=== PATIENT | male | born 1930 | race Hispanic/Latino ===

== ENCOUNTER 2017-05-27 09:52 | Emergency (ER) | payer MEDICARE, BC ==
[2017-05-27 09:57] VITALS: BMI 26.8
[2017-05-27 10:03] VITALS: RESP 18
[2017-05-27] MEDS ORDERED: Tetracaine 0.5% Ophth 2 ML BOTTLE ONE (10:29)
--- NOTE | 2017-05-27 10:50 | ED PDOC ---
Arrival/HPI - General Chief Complaint: Eye Problem Time Seen by Provider: 05/27/17 10:34 Historian: Patient - History of Present Illness Narrative History of Present Illness (Text): 05/27/17 10:40 Fletcher Valiente is a 87 year old male, with a history of a-fib on Xarelto, CT, hypertension, glaucoma and macular degeneration, presents to the emergency department complaining of redness and bleeding from the right eye following trauma to the area yesterday afternoon. States he was in the shower when he got struck on the eye by the shower handle. Initially, patient just noted redness to the eye, but minimally began to bleed around 4pm yesterday. Patient woke up with dried blood around in the eyelid. Also complains of blurry vision. Denies any fever, chills, headache, dizziness, LOC, chest pain, shortness of breath, nausea, vomiting, diarrhea, urinary symptoms, or any other complaints at this time. Time/Duration: Other (13:00 yesterday ) Symptom Onset: Sudden Activities at Onset: Significant Context: Home Past Medical History - Provider Review Nursing Documentation Reviewed: Yes - Infectious Disease Hx of Infectious Diseases: None - Cardiac Hx Cardiac Disorders: Yes Hx Atrial Fibrillation: Yes Hx CT: Yes Hx Hypertension: Yes - Pulmonary Hx Respiratory Disorders: No - Neurological Hx Dementia: Yes - HEENT Hx Deafness: ([place]) Hx Glaucoma: Yes Hx Macular Degeneration: Yes - Renal Hx Renal Disorder: No - Endocrine/Metabolic Hx Endocrine Disorders: No - Hematological/Oncological Hx Blood Disorders: No - Integumentary Hx Dermatological Disorder: No - Musculoskeletal/Rheumatological Hx Musculoskeletal Disorders: No - Gastrointestinal Hx Gastroesophageal Reflux: Yes - Genitourinary/Gynecological Hx Prostate Cancer: Yes - Psychiatric Hx Psychophysiologic Disorder: No Hx Substance Use: No - Surgical History Hx Open Heart Surgery: Yes Other/Comment: Carotid artery sx - Anesthesia Hx Anesthesia: Yes Hx Anesthesia Reactions: No Hx Malignant Hyperthermia: No Family/Social History - Physician Review Nursing Documentation Reviewed: Yes Family/Social History: No Known Family HX Smoking Status: Never Smoked Hx Alcohol Use: No Hx Substance Use: No Allergies/Home Meds Allergies/Adverse Reactions: Allergies No Known Allergies Allergy (Verified 05/10/15 11:13) Home Medications: Home Meds Medication Instructions Recorded Confirmed Aspirin [Aspirin Chewable] 81 mg PO DAILY 05/10/16 05/27/17 Multivitamin [Multi-Vitamin Daily] 1 tab PO DAILY 05/10/16 05/27/17 Rivaroxaban [Xarelto] 20 mg PO DAILY 05/10/16 05/27/17 Ergocalciferol [Drisdol 50,000 1 cap PO Q7D 05/27/17 05/27/17 Intl Units Cap] Esomeprazole Magnesium [Nexium] 1 cap PO DAILY 05/27/17 05/27/17 Memantine HCl/Donepezil HCl 1 cap PO DAILY 05/27/17 05/27/17 [Namzaric 28 mg-10 mg Capsule] Pravastatin Sodium [Pravachol] 1 tab PO HS 05/27/17 05/27/17 Vit B12/Levomefolate/Vit B6/B2 1 cap PO DAILY 05/27/17 05/27/17 [Cerefolin Caplet] Vit C/Vit E AC/Lut/Copper/Zinc 1 cap PO DAILY 05/27/17 05/27/17 [Preservision Lutein Softgel] Review of Systems - Review of Systems Constitutional: Normal. absent: Fatigue, Fevers Eyes: Vision Changes (blurred vision right eye ), Other (redness and bleeding noted from right eye ) Respiratory: Normal. absent: SOB, Cough Cardiovascular: Normal. absent: Chest Pain, Palpitations Gastrointestinal: Normal. absent: Abdominal Pain, Constipation, Diarrhea, Nausea, Vomiting Genitourinary Male: Normal Musculoskeletal: Normal Skin: Normal Neurological: Normal. absent: Headache, Dizziness, Focal Weakness Psychiatric: Normal Physical Exam - Physical Exam Narrative Physical Exam (Text): Constitutional: No acute distress. Head: Normocephalic. Atraumatic. Eyes: PERRL. No teardrop shaped pupil. + subconjunctival hemorrhage, superficial appearing lateral defect in sclera, dried blood in eyelid, no visible laceration. ENT: Moist mucous membranes. Neck: Supple. Cardiovascular: Regular rate. Chest: No tenderness. Respiratory: Clear to auscultation bilaterally. GI: Soft. Nontender. Nondistended. Back: No CVA tenderness. Musculoskeletal: No tenderness or swelling of extremities. Skin: No rash. Neurologic: Alert, no focal deficit.] Vital Signs Reviewed: Yes Vital Signs Temp Pulse Resp BP Pulse Ox 05/27/17 12:12 98.0 F 62 18 174/86 H 97 05/27/17 10:02 97.8 F 68 18 169/68 H 98 Temperature: Afebrile Blood Pressure: Hypertensive Pulse: Regular Respiratory Rate: Normal Appearance: Positive for: Well-Appearing, Non-Toxic, Comfortable Pain Distress: None Mental Status: Positive for: Alert and Oriented X 3 Medical Decision Making ED Course and Treatment: 05/27/17 10:53 Impression: A 87 year old male who presents to the emergency department complaining of redness and bleeding from the right eye following trauma to the are. Plan: -- Erythromycin -- Reassess and disposition -- Fluorescein stain filled aforementioned defect of eye without any visible dripping of acqueous humor. No evidence of globe rupture. Discussed case with Dr. Leonard who recommends erythromycin ointment, pressure dressing, and f/u in his office at 10am. Progress Notes: 05/27/17 12:06 On reevaluation the patient is in no acute distress. I have discussed the results and plan with the patient, who expresses understanding. Patient given the opportunity to ask question, all questions were answered and there is agreement with the plan to discharge the patient home. Patient is stable for discharge. Patient was instructed to follow up with physician/clinic in 1-2 days or return if symptoms persist/worsen or new concerning symptoms arise. - Medication Orders Current Medication Orders: Discontinued Medications Erythromycin (Erythromycin) 1 applic OD ONCE ONE Stop: 05/27/17 11:20 Last Admin: 05/27/17 12:15 Dose: 1 appl Tetracaine HCl (Tetracaine 0.5% Ophth Soln) Confirm Administered Dose 2 drop .ROUTE .STK-MED ONE Stop: 05/27/17 10:30 Last Admin: 05/27/17 10:40 Dose: 2 drop Comments: Administered by Dr. Mariee / R eye - Scribe Statement The provider has reviewed the documentation as recorded by the Sylvester Klein Provider Scribe Attestation: All medical record entries made by the Scribe were at my direction and personally dictated by me. I have reviewed the chart and agree that the record accurately reflects my personal performance of the history, physical exam, medical decision making, and the department course for this patient. I have also personally directed, reviewed, and agree with the discharge instructions and disposition. Disposition/Present on Arrival - Present on Arrival Any Indicators Present on Arrival: No History of DVT/PE: No History of Uncontrolled Diabetes: No Urinary Catheter: No History of Decub. Ulcer: No History Surgical Site Infection Following: None - Disposition Have Diagnosis and Disposition been Completed?: Yes Diagnosis: Conjunctival laceration Disposition: HOME/ ROUTINE Disposition Time: 12:45 Patient Plan: Discharge Condition: STABLE Discharge Instructions (ExitCare): Subconjunctival Hemorrhage (ED) Additional Instructions: Dr. Leonard is expecting you at 10am. Referrals: Lee Leonard MD [Staff Provider] - Follow up with primary
[2017-05-27] MEDS ORDERED: Erythromycin 0.5% Ophth Oint 1 APPLIC/3.5 G OD ONE (11:19)
[2017-05-27 12:13] VITALS: BP 174/86; PULSE 62; TEMP 98; O2SAT 97
== END 2017-05-27 12:30 | disposition home or self-care (01) ==
LOC: ED 09:52
DX: S05.31XA Ocular laceration without prolapse or loss of intraocular tissue, right eye, initial encounter (principal); W22.8XXA Striking against or struck by other objects, initial encounter; Y93.E1 Activity, personal bathing and showering; Y92.002 Bathroom of unspecified non-institutional (private) residence as the place of occurrence of the external cause; I10 Essential (primary) hypertension; I48.91 Unspecified atrial fibrillation; Z79.01 Long term (current) use of anticoagulants

== ENCOUNTER 2018-06-29 08:25 | Emergency (ER) | payer MEDICARE, BC ==
[2018-06-29 08:26] VITALS: BMI 26.8
[2018-06-29 08:41] VITALS: O2SAT 98
--- NOTE | 2018-06-29 09:28 | ED PDOC ---
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 His did not witness the fall until he called her afterwards. She believes he fell while trying to get dressed. She does not think he hit his head. He fell on carpet in his bedroom near the dresser. Currently, he endorses a mild headache and back pain. Otherwise, he denies vision changes, chest pain, SOB, cough, nausea/vomiting/diarrhea, changes in sensation, weakness, or any other symptoms. (Toney Monte) Past Medical History - Provider Review Nursing Documentation Reviewed: Yes - Infectious Disease Hx of Infectious Diseases: None - Cardiac Hx Cardiac Disorders: Yes Hx Atrial Fibrillation: Yes Hx MA: Yes Hx Hypertension: Yes - Pulmonary Hx Respiratory Disorders: No - Neurological Hx Alzheimer's Disease: Yes Hx Dementia: Yes - HEENT Hx Deafness: ([place]) Hx Glaucoma: Yes Hx Macular Degeneration: Yes - Renal Hx Renal Disorder: No - Endocrine/Metabolic Hx Endocrine Disorders: No - Hematological/Oncological Hx Blood Disorders: No - Integumentary Hx Dermatological Disorder: No - Musculoskeletal/Rheumatological Hx Musculoskeletal Disorders: No - Gastrointestinal Hx Gastroesophageal Reflux: Yes - Genitourinary/Gynecological Hx Prostate Cancer: Yes - Psychiatric Hx Psychophysiologic Disorder: No Hx Substance Use: No - Surgical History Hx Open Heart Surgery: Yes Other/Comment: Carotid artery sx - Anesthesia Hx Anesthesia: Yes Hx Anesthesia Reactions: No Hx Malignant Hyperthermia: No <Toney Monte - Last Filed: 06/29/18 11:48> Family/Social History - Physician Review Nursing Documentation Reviewed: Yes Family/Social History: No Known Family HX Smoking Status: Never Smoked Hx Alcohol Use: No Hx Substance Use: No <Toney Monte - Last Filed: 06/29/18 11:48> Allergies/Home Meds <Toney Monte - Last Filed: 06/29/18 11:48> <Andrei Reese - Last Filed: 06/29/18 12:38> Allergies/Adverse Reactions: Allergies No Known Allergies Allergy (Verified 06/29/18 08:43) Home Medications: Home Meds Medication Instructions Recorded Confirmed Aspirin [Aspirin Chewable] 81 mg PO DAILY 05/10/16 06/29/18 Multivitamin [Multi-Vitamin Daily] 1 tab PO DAILY 05/10/16 06/29/18 Rivaroxaban [Xarelto] 20 mg PO DAILY 05/10/16 06/29/18 Memantine HCl/Donepezil HCl 1 cap PO DAILY 05/27/17 06/29/18 [Namzaric 28 mg-10 mg Capsule] Pravastatin Sodium [Pravachol] 40 tab PO HS 05/27/17 06/29/18 Esomeprazole Magnesium [Nexium 1 tab PO DAILY 06/29/18 06/29/18 24Hr] Vit B12/Levomefolate/Vit B6/B2 1 tab PO DAILY 06/29/18 06/29/18 [Cerefolin Caplet] Review of Systems - Review of Systems Constitutional: absent: Fevers, Night Sweats Eyes: absent: Vision Changes ENT: absent: Hearing Changes, Sore Throat Respiratory: absent: SOB, Cough Cardiovascular: absent: Chest Pain, Syncope Gastrointestinal: absent: Abdominal Pain, Diarrhea, Nausea, Vomiting Genitourinary Male: absent: Dysuria, Frequency, Urinary Output Changes Musculoskeletal: Back Pain Skin: absent: Rash, Pruritis, Skin Lesions Neurological: Headache. absent: Dizziness, Speech Changes, Facial Droop Endocrine: absent: Diaphoresis <MonteToney wade - Last Filed: 06/29/18 11:48> Physical Exam Vital Signs Reviewed: Yes Temperature: Afebrile Mental Status: Positive for: Confused - Systems Exam Head: Present: Atraumatic, Normocephalic. No: Contusion, Ecchymosis, Abrasion, Laceration Pupils: Present: PERRL Extroacular Muscles: Present: EOMI Mouth: Present: Moist Mucous Membranes Pharnyx: Present: Normal. No: ERYTHEMA, EXUDATE, TONSILS ENLARGED Nose (External): Present: Atraumatic Neck: Present: Normal Range of Motion Respiratory/Chest: Present: Clear to Auscultation. No: Respiratory Distress, Accessory Muscle Use, Rales, Rhonchi Cardiovascular: Present: Regular Rate and Rhythm, Normal S1, S2. No: Murmurs, Rub, Gallop Abdomen: Present: Normal Bowel Sounds. No: Tenderness, Distention, Rebound, Guarding Back: Present: Normal Inspection Upper Extremity: Present: Normal Inspection. No: Cyanosis, Edema Lower Extremity: Present: Normal Inspection. No: Edema, Cyanosis Neurological: Present: CN II-XII Intact, Speech Normal, Motor Func Grossly Intact Skin: Present: Warm, Dry, Normal Color Psychiatric: Present: Alert <Toney Monte - Last Filed: 06/29/18 11:48> Temperature: Afebrile Blood Pressure: Hypertensive Pulse: Regular Respiratory Rate: Normal Appearance: Positive for: Well-Appearing, Non-Toxic, Comfortable Pain Distress: None Mental Status: Positive for: Alert and Oriented X 3 <Andrei Reese - Last Filed: 06/29/18 12:38> Vital Signs Temp Pulse Resp BP Pulse Ox 06/29/18 11:37 98.2 F 65 18 166/100 H 98 06/29/18 08:35 98.2 F 70 16 185/78 H 98 06/29/18 08:26 98.2 F 70 16 185/78 H 98 Medical Decision Making - Lab Interpretations I have reviewed the lab results: Yes Interpretation: All labs normal - RAD Interpretation Visitor Services Coordinator: Radiologist <Toney Monte - Last Filed: 06/29/18 11:48> <Andrei Reese - Last Filed: 06/29/18 12:38> ED Course and Treatment: 06/29/18 11:23 Patient was seen and examined again. Results of imaging were discussed with his , who is also his primary caregiver. Her main concern is that she has not been getting enough rest and she is unsure whether she will be able to continue to care for him at home. We explained that, given negative imaging findings, we cannot keep him at the hospital. We spoke to his PMD Dr. Garzon who states that she will be speaking with [facility] intermodal dispatcher care today to see if he will be able to get a bed. We encouraged his to follow up with her and to return to ED if his condition worsens. (Toney Monte) 06/29/18 In agreement with resident note, which includes further HPI details. Patient was seen and evaluated with resident, came up with plan and treatment together. (Andrei Reese) - Lab Interpretations Lab Results: 06/29/18 09:30 06/29/18 09:30 Lab Results 06/29/18 09:30: Urine Color Yellow, Urine Appearance Clear, Urine pH 7.5, Ur Specific [place] 1.015, Urine Protein Negative, Urine Glucose (UA) Negative, Urine Ketones Trace H, Urine Blood Trace-intact H, Urine Nitrate Negative, Urine Bilirubin Negative, Urine Urobilinogen 0.2, Ur Leukocyte Esterase Negative , Urine RBC 0 - 2, Urine WBC 1 - 3, Ur Epithelial Cells 1 - 3, Urine Bacteria Few 06/29/18 09:30: Sodium 140, Potassium 4.1, Chloride 101, Carbon Dioxide 28, Anion Gap 16, BUN 11, Creatinine 0.8, Est GFR ( Amer) > 60, Est GFR (Non- Af Amer) > 60, Random Glucose 114 H, Calcium 9.2, Phosphorus 2.5, Magnesium 2.0 , Total Bilirubin 1.8 H, AST 42, ALT 17, Alkaline Phosphatase 79, Total Protein 7.8, Albumin 4.4, Globulin 3.4, Albumin/Globulin Ratio 1.3 06/29/18 09:30: WBC 8.3, RBC 4.23, Hgb 13.6 L, Hct 40.0 L, MCV 94.6, MCH 32.2, MCHC 34.0, RDW 13.5, Plt Count 141, MPV 10.4, Gran % 79.1 H, Lymph % (Auto) 13.1 L, [place] % (Auto) 7.1 H, Eos % (Auto) 0.5 L, Baso % (Auto) 0.2, Gran # 6.56 H, Lymph # (Auto) 1.1 L, [place] # (Auto) 0.6, Eos # (Auto) 0.0, Baso # (Auto) 0.02 - RAD Interpretation Radiology Orders: 06/29/18 09:04 HEAD W/O CONTRAST [CT] Stat CHEST PORTABLE [RAD] Stat 06/29/18 09:18 THORACIC SPINE [DORSAL (THORACIC) SPINE] [RAD] Routine <Toney Monte - Last Filed: 06/29/18 11:48> - PA / CERTIFIED FORKLIFT OPERATOR / Resident Statement MD/DO has reviewed & agrees with the documentation as recorded. MD/DO has examined the patient and agrees with the treatment plan. - Scribe Statement The provider has reviewed the documentation as recorded by the Scribe <Andrei Reese - Last Filed: 06/29/18 12:38> - Scribe Statement Vandana Don Provider Scribe Attestation: All medical record entries made by the Scribe were at my direction and personally dictated by me. I have reviewed the chart and agree that the record accurately reflects my personal performance of the history, physical exam, medical decision making, and the department course for this patient. I have also personally directed, reviewed, and agree with the discharge instructions and disposition. (Andrei Reese) Disposition/Present on Arrival - Present on Arrival Any Indicators Present on Arrival: No History of DVT/PE: No History of Uncontrolled Diabetes: No Urinary Catheter: No History of Decub. Ulcer: No History Surgical Site Infection Following: None - Disposition Have Diagnosis and Disposition been Completed?: Yes Disposition Time: 11:32 Patient Plan: Discharge <Toney Monte - Last Filed: 06/29/18 11:48> <Andrei Reese - Last Filed: 06/29/18 12:38> - Disposition Diagnosis: Fall Disposition: HOME/ ROUTINE Patient Problems: Current Active Problems Problem Status Onset Fall Acute Condition: FAIR Discharge Instructions (ExitCare): Preventing Falls in the Older Adult Additional Instructions: Please follow up with Dr. Garzon about getting Mr. Valiente placed at [facility]. His is his primary caregiver and she is struggling to continue to take care of him. Forms: [employer] ([place])
[2018-06-29 09:47] LABS: BASO # 0.02 K/mm3 (0.0-2.0); BASO % 0.2 % (0.0-3.0); EOS % 0.5 % (1.5-5.0); GRAN # 6.56 (1.4-6.5); GRAN % 79.1 % (50.0-68.0); HEMOGLOBIN 13.6 g/dL (14.0-18.0); LYMPH # 1.1 (1.2-3.4); LYMPH % 13.1 % (22.0-35.0); MEAN CELL VOLUME 94.6 fl (80.0-105.0); MEAN CORPUSCULAR HEMOGLOBIN 32.2 pg (25.0-35.0); MEAN PLATELET VOLUME 10.4 fl (7.0-11.0); MONO # 0.6 (0.1-0.6); MONO % 7.1 % (1.0-6.0); RBC 4.23 10^6/uL (3.5-6.1); RED CELL DISTRIBUTION WIDTH 13.5 % (11.5-14.5); WHITE BLOOD COUNT 8.3 10^3/ul (4.5-11.0)
[2018-06-29 09:50] LABS: PH,URINE 7.5 (4.7-8.0); URINE APPEARANCE CLEAR (CLEAR); URINE BILIRUBIN NEGATIVE (NEGATIVE); URINE BLOOD TRACE-INTACT (NEGATIVE); URINE COLOR YELLOW (YELLOW); URINE GLUCOSE (UA) NEGATIVE (NEGATIVE); URINE LEUKOCYTE ESTERASE NEGATIVE Leu/uL (NEGATIVE); URINE PROTEIN NEGATIVE mg/dL (<30 mg/dL); URINE UROBILINOGEN 0.2 E.U./dL (<1 E.U./dL)
[2018-06-29 09:56] LABS: ALB/GLOB RATIO 1.3 (1.1-1.8); ALBUMIN 4.4 g/dL (3.0-4.8); ALT/SGPT 17 U/L (7-56); AST/SGOT 42 U/L (17-59); BLOOD UREA NITROGEN 11 mg/dL (7-21); CALCIUM 9.2 mg/dL (8.4-10.5); GFR AFRICAN-AMERICAN > 60; GFR NON-AFRICAN AMERICAN > 60
--- NOTE | 2018-06-29 10:07 | CT ---
Date of service: 06/29/2018 PROCEDURE: CT HEAD WITHOUT CONTRAST. HISTORY: fall COMPARISON: 05/10/2016 TECHNIQUE: Axial computed tomography images were obtained through the head/brain without intravenous contrast. Radiation dose: Total exam DLP = 937 mGy-cm. This CT exam was performed using one or more of the following dose reduction techniques: Automated exposure control, adjustment of the mA and/or kV according to patient size, and/or use of iterative reconstruction technique. FINDINGS: HEMORRHAGE: No intracranial hemorrhage. BRAIN: No mass effect or edema. There is moderate atrophy and chronic microvascular changes in the periventricular white matter and basal ganglia. VENTRICLES: Unremarkable. No hydrocephalus. CALVARIUM: Unremarkable. PARANASAL SINUSES: Unremarkable as visualized. No significant inflammatory changes. MASTOID AIR CELLS: Unremarkable as visualized. No inflammatory changes. OTHER FINDINGS: None. IMPRESSION: No acute findings
[2018-06-29 10:14] LABS: URINE RBC 0 - 2 /hpf (0-2)
[2018-06-29 10:15] LABS: URINE BACTERIA FEW (NEG)
--- NOTE | 2018-06-29 10:41 | RAD ---
Date of service: 06/29/2018 HISTORY: fall, r/o fx COMPARISON: No prior. FINDINGS: LUNGS: No active pulmonary disease. PLEURA: No significant pleural effusion identified, no pneumothorax apparent. CARDIOVASCULAR: Mild cardiomegaly. Midline sternotomy. Coronary artery bypass clips. OSSEOUS STRUCTURES: No gross fracture appreciated. Thoracic spondylosis. 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 Probable right coaster vertebral osseous hypertrophic changes at the right hilar level. Bilateral shoulder arthrosis. Cervical spondylosis. VISUALIZED UPPER ABDOMEN: Normal. OTHER FINDINGS: None. IMPRESSION: No acute pulmonary pathology appreciated. Cardiomegaly and midline sternotomy- status post CABG. No gross fracture appreciated. Please note the same-day thoracic spine study.
--- NOTE | 2018-06-29 10:48 | RAD ---
Date of service: 06/29/2018 HISTORY: s/p fall, r/o compression fx COMPARISON: No prior. FINDINGS: BONES: Alignment maintained. No gross fracture. . Spondylosis present. Calcification ossification of the anterior longitudinal ligament compatible with DISH DISC SPACES: Minimal diffuse disc space narrowing SOFT TISSUES: Normal. OTHER FINDINGS: Atherosclerotic vascular calcifications present. . IMPRESSION: No gross fracture appreciated. Thoracic spondylosis and DISH
[2018-06-29 11:38] VITALS: RESP 18
[2018-06-29 13:12] VITALS: BP 158/86; PULSE 61; TEMP 98
--- NOTE | 2018-06-29 14:16 | CARD ---
APPROVED REPORT Date of service: 06/29/2018 EKG Measurement Heart [id number] <Conclusion> Atrial fibrillation Left axis deviation Left bundle branch block Abnormal ECG
== END 2018-06-29 12:50 | disposition home or self-care (01) ==
LOC: ED 08:25
DX: Z04.3 Encounter for examination and observation following other accident (principal); W18.30XA Fall on same level, unspecified, initial encounter; Y92.003 Bedroom of unspecified non-institutional (private) residence as the place of occurrence of the external cause; I10 Essential (primary) hypertension; I25.2 Old myocardial infarction; I48.91 Unspecified atrial fibrillation; G30.9 Alzheimer's disease, unspecified; F02.80 Dementia in other diseases classified elsewhere, unspecified severity, without behavioral disturbance, psychotic disturbance, mood disturbance, and anxiety; Z85.46 Personal history of malignant neoplasm of prostate; Z79.01 Long term (current) use of anticoagulants

== ENCOUNTER 2018-07-07 11:30 | Inpatient (IN) | payer MEDICARE, BC ==
[2018-07-07 11:34] VITALS: BMI 25.8
[2018-07-07] MEDS ORDERED: Sodium Chloride 0.9% 500 ML IV STA (11:38)
--- NOTE | 2018-07-07 11:46 | ED PDOC ---
Arrival/HPI - General Time Seen by Provider: 07/07/18 11:37 Historian: Patient, Spouse EM Caveat: Dementia - History of Present Illness Narrative History of Present Illness (Text): 07/07/18 11:39 Patient is a 88 year old male whose past medical history includes prostate cancer(2009), Coronary Artery Disease, s/p CABG, and afib, who presents to the Emergency department complaining of LLQ abdominal pain. Patient is present with his who states that his abdominal pain started 2 days ago and worsened yesterday. He describes the pain as sharp, and reports that he started experiencing back pain today. He tried Tylenol for his abdominal pain with no alleviation. Patient also notes having diarrhea with 10 bowel movements yesterday, and has increased urination frequency. Patient is on Xarelto for his afib. According to his patient's last colonoscopy 5-6 year ago and was normal. also notes that patient has Alzheimer's disease. Patient denies any fever, sore throat, cough, shortness of breath, chest pain, nausea, vomiting, new rashes, headache, depression, or any other associated symptoms. ROS limited due to patient's dementia. PMD: Time/Duration: < week Symptom Onset: Gradual Symptom Course: Worsening Quality: Stabbing Context: Home Past Medical History - Provider Review Nursing Documentation Reviewed: Yes - Infectious Disease Hx of Infectious Diseases: None - Cardiac Hx Cardiac Disorders: Yes Hx Atrial Fibrillation: Yes Hx AK: Yes Hx Hypertension: Yes - Pulmonary Hx Respiratory Disorders: No - Neurological Hx Alzheimer's Disease: Yes Hx Dementia: Yes - HEENT Hx Deafness: (NENANA) Hx Glaucoma: Yes Hx Macular Degeneration: Yes - Renal Hx Renal Disorder: No - Endocrine/Metabolic Hx Endocrine Disorders: No - Hematological/Oncological Hx Blood Disorders: No - Integumentary Hx Dermatological Disorder: No - Musculoskeletal/Rheumatological Hx Musculoskeletal Disorders: No - Gastrointestinal Hx Gastroesophageal Reflux: Yes - Genitourinary/Gynecological Hx Prostate Cancer: Yes - Psychiatric Hx Psychophysiologic Disorder: No Hx Substance Use: No - Surgical History Hx Open Heart Surgery: Yes Other/Comment: Carotid artery sx - Anesthesia Hx Anesthesia: Yes Hx Anesthesia Reactions: No Hx Malignant Hyperthermia: No Family/Social History - Physician Review Nursing Documentation Reviewed: Yes Family/Social History: No Known Family HX Smoking Status: Never Smoked Hx Alcohol Use: No Hx Substance Use: No Allergies/Home Meds Allergies/Adverse Reactions: Allergies No Known Allergies Allergy (Verified 07/07/18 11:34) Home Medications: Home Meds Medication Instructions Recorded Confirmed Aspirin [Aspirin Chewable] 81 mg PO DAILY 05/10/16 07/07/18 Multivitamin [Multi-Vitamin Daily] 1 tab PO DAILY 05/10/16 07/07/18 Rivaroxaban [Xarelto] 20 mg PO DAILY 05/10/16 07/07/18 Memantine HCl/Donepezil HCl 1 cap PO DAILY 05/27/17 07/07/18 [Namzaric 28 mg-10 mg Capsule] Pravastatin Sodium [Pravachol] 40 tab PO HS 05/27/17 07/07/18 Esomeprazole Magnesium [Nexium 1 tab PO DAILY 06/29/18 07/07/18 24Hr] Vit B12/Levomefolate/Vit B6/B2 1 tab PO DAILY 06/29/18 07/07/18 [Cerefolin Cap[place]] Review of Systems - Review of Systems Constitutional: absent: Fevers ENT: absent: Sore Throat Respiratory: absent: SOB, Cough Cardiovascular: absent: Chest Pain Gastrointestinal: Abdominal Pain, Diarrhea. absent: Nausea Genitourinary Male: Frequency (increased) Musculoskeletal: Back Pain Skin: absent: Rash Neurological: absent: Headache Psychiatric: absent: Depression Physical Exam Vital Signs Temp Pulse Resp BP Pulse Ox 07/07/18 11:34 98.7 F 67 18 149/69 98 Temperature: Afebrile Blood Pressure: Normal Pulse: Regular Respiratory Rate: Normal Appearance: Positive for: Well-Appearing Mental Status: Positive for: Alert and Oriented X 3 - Systems Exam Head: Present: Atraumatic, Normocephalic Pupils: Present: PERRL Extroacular Muscles: Present: EOMI Conjunctiva: Present: Normal Mouth: Present: Moist Mucous Membranes Neck: Present: Normal Range of Motion Respiratory/Chest: Present: Clear to Auscultation, Good Air Exchange. No: Respiratory Distress, Accessory Muscle Use Cardiovascular: Present: Normal S1, S2, Other (irregularly irregular). No: Murmurs Abdomen: Present: Tenderness (LLQ tenderness). No: Distention, Peritoneal Signs Genitourinary Male: No: Testicle Tenderness Back: Present: Paraspinal Tenderness (Left lower back). No: Midline Tenderness Upper Extremity: Present: Normal Inspection. No: Cyanosis, Edema Lower Extremity: Present: Normal Inspection. No: Edema Neurological: Present: GCS=15, CN II-XII Intact, Speech Normal Skin: Present: Warm, Dry, Normal Color. No: Rashes Psychiatric: Present: Alert, Oriented x 3, Normal Insight, Normal Concentration Medical Decision Making ED Course and Treatment: 07/07/18 11:51 Impression: Patient is a 88 year old male who presents to the Emergency department complaining of abdominal pain, which started 2 days ago and worsened yesterday. Differential Diagnosis included but are not limited to: Diverticulitis vs. UTI vs. Small bowel obstruction Plan: --abdominal and pelvic CT with IV contrast --Labs --Blood work --Urinalysis --Toradol -- Zofran -- IV fluids -- Reassess and disposition Prior Visits: Notes and results from previous visits were reviewed. Progress Notes: 07/07/18 12:22 evaluated patient at bedside. 07/07/18 13:51 CT Abd/pelvis findings: LOWER THORAX: Unremarkable. LIVER: Unremarkable. No gross lesion or ductal dilatation. GALLBLADDER AND BILE DUCTS: Several gallstones PANCREAS: Unremarkable. No gross lesion or ductal dilatation. SPLEEN: Unremarkable. ADRENALS: Unremarkable. No mass. KIDNEYS AND URETERS: Unremarkable. No hydronephrosis. No solid mass. 8 cm simple cyst arising from lower pole of the right kidney VASCULATURE:Unremarkable. No aortic aneurysm. BOWEL: Unremarkable. No obstruction. No gross mural thickening. APPENDIX: Normal appendix. PERITONEUM: There is severe edema and swelling of the left iliacus muscle consistent with a muscular strain or partial tear. There is some minimal edema in the adjacent mesenteric fat planes. The swelling extends into the iliopsoas muscle and tendon to the level of the insertion on the hip. This is most likely due to a hip flexor type injury. There is no associated fracture. LYMPH NODES: Unremarkable. No enlarged lymph nodes. BLADDER: Unremarkable. REPRODUCTIVE: Unremarkable. BONES: No acute fracture. OTHER FINDINGS: None. IMPRESSION: Severe edema and swelling of the left iliacus muscle consistent with a muscular tear or strain. 07/07/18 14:05 Patient walks at baseline with a walker. Above CT findings may account for patient's abdominal pain. PT evaluation placed. UA shows moderate bacteria but only 2-5wbc and negative nitrates and leukocytes. Ucx sent. Discussed case with , who accepts the patient to her service for observation for PT evaluation and ?ortho evaluation due to muscle tear/strain. - Lab Interpretations Lab Results: 07/07/18 12:00 07/07/18 12:00 Lab Results 07/07/18 12:00: Sodium 138, Potassium 4.1, Chloride 101, Carbon Dioxide 28, Anion Gap 13, BUN 14, Creatinine 0.7 L, Est GFR ( Amer) > 60, Est GFR ( Non-Af Amer) > 60, Random Glucose 109, Calcium 8.9, Phosphorus 2.5, Magnesium 1.9, Total Bilirubin 2.0 H, AST 28, ALT 16, Alkaline Phosphatase 70, Total Protein 7.1, Albumin 3.9, Globulin 3.2, Albumin/Globulin Ratio 1.2, Lipase 34 07/07/18 12:00: Urine Color Yellow, Urine Appearance Clear, Urine pH 6.0, Ur Specific [place] 1.025, Urine Protein Trace H, Urine Glucose (UA) Negative, Urine Ketones Trace H, Urine Blood Negative, Urine Nitrate Negative, Urine Bilirubin Negative, Urine Urobilinogen 1.0 H, Ur Leukocyte Esterase Negative, Urine RBC 1 - 3, Urine WBC 2 - 5, Ur Epithelial Cells 0 - 2, Amorphous Sediment Few, Urine Bacteria Mod 07/07/18 12:00: PT 21.0 H, INR 1.80, APTT 34.1 07/07/18 12:00: WBC 8.9, RBC 3.66, Hgb 11.9 L, Hct 34.4 L, MCV 94.0, MCH 32.5, MCHC 34.6, RDW 13.8, Plt Count 143, MPV 9.8, Gran % 69.5 H, Lymph % (Auto) 15.8 L, [place] % (Auto) 13.1 H, Eos % (Auto) 1.3 L, Baso % (Auto) 0.3, Gran # 6.21, Lymph # (Auto) 1.4, [place] # (Auto) 1.2 H, Eos # (Auto) 0.1, Baso # (Auto) 0.03 I have reviewed the lab results: Yes - RAD Interpretation Radiology Orders: 07/07/18 11:39 ABD & PELVIS IV CONTRAST ONLY [CT] Stat Athletic Trainer: Radiologist - Medication Orders Current Medication Orders: Discontinued Medications Sodium Chloride (Sodium Chloride 0.9%) 500 mls @ 999 mls/hr IV .Q31M STA Stop: 07/07/18 12:08 Last Admin: 07/07/18 11:57 Dose: 999 mls/hr eMAR Start Stop Document 07/07/18 11:57 ELMER (Rec: 07/07/18 11:58 [email or web address] [id number]) Intravenous Solution Start Date 07/07/18 Start Time 11:58 End Date 07/07/18 End time 12:28 Total Infusion Time 30 Ketorolac Tromethamine (Toradol) 30 mg IVP STAT STA Stop: 07/07/18 11:39 Last Admin: 07/07/18 11:57 Dose: 30 mg MAR Pain Assessment Document 07/07/18 11:57 ELMER (Rec: 07/07/18 11:57 ELMER [id number]) Pain Reassessment Is this a pain reassessment? No Sleep Is patient sleeping during reassessment? No Presence of Pain Presence of Pain Yes IVP Administration Document 07/07/18 11:57 ELMER (Rec: 07/07/18 11:57 ELMER [id number]) Charges for Administration # of IVP Administrations 1 Ondansetron HCl (Zofran Inj) 4 mg IVP STAT STA Stop: 07/07/18 11:39 Last Admin: 07/07/18 11:57 Dose: 4 mg IVP Administration Document 07/07/18 11:57 ELMER (Rec: 07/07/18 11:57 DAYA [id number]) Charges for Administration # of IVP Administrations 1 - Scribe Statement The provider has reviewed the documentation as recorded by the Scribe Anton Preston Provider Scribe Attestation: All medical record entries made by the Scribe were at my direction and personally dictated by me. I have reviewed the chart and agree that the record accurately reflects my personal performance of the history, physical exam, medical decision making, and the department course for this patient. I have also personally directed, reviewed, and agree with the discharge instructions and disposition. Disposition/Present on Arrival - Present on Arrival Any Indicators Present on Arrival: No History of DVT/PE: No History of Uncontrolled Diabetes: No Urinary Catheter: No History Surgical Site Infection Following: None - Disposition Have Diagnosis and Disposition been Completed?: Yes Diagnosis: Anemia, Muscle tear Disposition: HOSPITALIZED Disposition Time: 13:53 Patient Plan: Observation Patient Problems: Current Active Problems Problem Status Onset Anemia Acute Muscle tear Acute Condition: FAIR
[2018-07-07 12:11] LABS: BASO # 0.03 K/mm3 (0.0-2.0); BASO % 0.3 % (0.0-3.0); EOS # 0.1 (0.0-0.7); EOS % 1.3 % (1.5-5.0); GRAN # 6.21 (1.4-6.5); GRAN % 69.5 % (50.0-68.0); HEMOGLOBIN 11.9 g/dL (14.0-18.0); LYMPH # 1.4 (1.2-3.4); LYMPH % 15.8 % (22.0-35.0); MEAN CORPUSCULAR HEMOGLOBIN 32.5 pg (25.0-35.0); MEAN CORPUSCULAR HGB CONC 34.6 g/dl (31.0-37.0); MEAN PLATELET VOLUME 9.8 fl (7.0-11.0); MONO # 1.2 (0.1-0.6); MONO % 13.1 % (1.0-6.0); RBC 3.66 10^6/uL (3.5-6.1); RED CELL DISTRIBUTION WIDTH 13.8 % (11.5-14.5); URINE BILIRUBIN NEGATIVE (NEGATIVE); URINE BLOOD NEGATIVE (NEGATIVE); URINE GLUCOSE (UA) NEGATIVE (NEGATIVE); URINE LEUKOCYTE ESTERASE NEGATIVE Leu/uL (NEGATIVE); URINE PROTEIN TRACE mg/dL (<30 mg/dL); WHITE BLOOD COUNT 8.9 10^3/ul (4.5-11.0)
[2018-07-07 12:13] LABS: URINE APPEARANCE CLEAR (CLEAR); URINE COLOR YELLOW (YELLOW)
[2018-07-07 12:15] LABS: INR 1.8
[2018-07-07 12:18] LABS: PARTIAL THROMBOPLASTIN TIME 34.1 Seconds (25.1-36.5)
[2018-07-07 12:30] LABS: ALB/GLOB RATIO 1.2 (1.1-1.8); ALBUMIN 3.9 g/dL (3.0-4.8); ALT/SGPT 16 U/L (7-56); AST/SGOT 28 U/L (17-59); BLOOD UREA NITROGEN 14 mg/dL (7-21); CALCIUM 8.9 mg/dL (8.4-10.5); GFR AFRICAN-AMERICAN > 60; GFR NON-AFRICAN AMERICAN > 60; LIPASE 34 U/L (23-300)
[2018-07-07] MEDS ORDERED: Iohexol 350 MG/100 ML VIAL ONE (12:37)
[2018-07-07 12:56] LABS: URINE EPITHELIAL CELLS 0 - 2 /hpf (0-5)
[2018-07-07 12:57] LABS: URINE AMORPHOUS SEDIMENT FEW; URINE BACTERIA MOD (NEG)
--- NOTE | 2018-07-07 13:51 | CT ---
Date of service: 07/07/2018 PROCEDURE: CT Abdomen and Pelvis with contrast HISTORY: LLQ pain COMPARISON: None. TECHNIQUE: Contrast dose: 100 cc of Omni 350 Radiation dose: Total exam DLP = 684 mGy-cm. This CT exam was performed using one or more of the following dose reduction techniques: Automated exposure control, adjustment of the mA and/or kV according to patient size, and/or use of iterative reconstruction technique. FINDINGS: LOWER THORAX: Unremarkable. LIVER: Unremarkable. No gross lesion or ductal dilatation. GALLBLADDER AND BILE DUCTS: Several gallstones PANCREAS: Unremarkable. No gross lesion or ductal dilatation. SPLEEN: Unremarkable. ADRENALS: Unremarkable. No mass. KIDNEYS AND URETERS: Unremarkable. No hydronephrosis. No solid mass. 8 cm simple cyst arising from lower pole of the right kidney VASCULATURE: Unremarkable. No aortic aneurysm. BOWEL: Unremarkable. No obstruction. No gross mural thickening. APPENDIX: Normal appendix. PERITONEUM: There is severe edema and swelling of the left iliacus muscle consistent with a muscular strain or partial tear. There is some minimal edema in the adjacent mesenteric fat planes. The swelling extends into the iliopsoas muscle and tendon to the level of the insertion on the hip. This is most likely due to a hip flexor type injury. There is no associated fracture. The study was reviewed with Dr. Barrett at 1:40 p.m. LYMPH NODES: Unremarkable. No enlarged lymph nodes. BLADDER: Unremarkable. REPRODUCTIVE: Unremarkable. BONES: No acute fracture. OTHER FINDINGS: None. IMPRESSION: Severe edema and swelling of the left iliacus muscle consistent with a muscular tear or strain.
[2018-07-07] MEDS ORDERED: TraMADol/Apap 37.5/325 mg Tab PO PRN (18:54)
[2018-07-07] MEDS ORDERED: Pneumococcal 23-Valent Vaccine IM ONE (21:00)
--- NOTE | 2018-07-08 06:14 | HP ---
Copied To: Stone Sofia MD Attending MD: Stone Sofia MD HISTORY OF PRESENT ILLNESS: The patient is an 88-year-old, known to me from office practice. He is basically homebound and his girlfriend, Jennifer, is taking care of him. According to her, he has been very unstable, had multiple fall at home, was recently brought to the emergency room after he had fall on 06/29/2018. He had x-ray done and was sent home. She states that he has been complaining of intractable back pain radiating to the left lower and upper quadrant area, difficulty in mobilizing. She states she cannot take care of him, it is becoming increasingly difficult to ambulate him. There is no history of nausea or vomiting. No diarrhea. He eats well. No hemoptysis. No hematemesis. No rectal bleeding. However, he is forgetful and has dementia. PAST MEDICAL HISTORY: Significant for: 1. Hypertension. 2. Chronic AFib. 3. Hyperlipidemia. 4. History of open heart surgery. 5. History of gastroesophageal reflux disease. 6. Macular degeneration. 7. History of carotid endarterectomy. ALLERGIES: THE PATIENT IS NOT ALLERGIC TO ANY MEDICATION. MEDICATIONS AT HOME: He is on; 1. Multivitamin. 2. Namzaric. 3. Nexium 40 mg daily. 4. Aspirin 81 daily. 5. Xarelto 20 mg daily. 6. Pravastatin 40 mg daily. SOCIAL HISTORY: He is single, lives with his girlfriend. No history of smoking or drinking. REVIEW OF SYSTEMS: Generalized weakness, difficulty walking, had multiple fall at home, lately has left flank contusion. PHYSICAL EXAMINATION: GENERAL: He is awake and alert, forgetful. VITAL SIGNS: He is afebrile, pulse 76, respirations 20, blood pressure 146/75. LUNGS: Bilateral fair airflow. No rhonchi or crackle. HEART: S1 and S2 audible. ABDOMEN: Soft, nontender. No rebound. No guarding. NEUROLOGICAL: The patient is awake, alert, but confused and disoriented. He has left upper quadrant and left flank discomfort. LABORATORY DATA: WBC is 8.9, hemoglobin 11.9, hematocrit 34, platelets 143. PT 21, INR 1.8. Chemistry: Sodium 138, potassium 4.1, chloride 101, CO2 of 28, BUN 14, creatinine 0.7, blood sugar 109. LFTs are within normal limit. Total bilirubin 2. Urinalysis shows trace ketones and protein and urobilinogen; no leukocyte or nitrites. He had CT scan of the abdomen and pelvis done that shows severe edema and swelling of the left iliacus muscle consistent with muscular tear or strain. ASSESSMENT: 1. Status post multiple falls. 2. Unstable gait. 3. Deconditioning. 4. Intractable flank pain because of recent fall and had iliacus muscle tear versus strain. 5. Dementia. 6. Hypertension. 7. Chronic atrial fibrillation. 8. Coronary artery disease. PLAN: The patient will be admitted. We will give him analgesics, and requested physical therapy depending on. If he is stable to walk, might discharge him in morning after pain control; if not, then he might need subacute rehab leading to long-term care since his girlfriend is also sick and is unable to take care of him, and she will be very much interested for subacute rehab and long-term care. Stone Sofia MD
[2018-07-08] MEDS: Multivitamin With Minerals Tab PO SCH (09:17)
[2018-07-08] MEDS: DONEPEZIL HCL PO SCH (10:52)
[2018-07-08] MEDS: [UNRECOGNIZED DRUG - OTHER] PO SCH (10:52)
[2018-07-08] MEDS: MEMANTINE HCL PO SCH (10:52)
--- NOTE | 2018-07-08 12:27 | PN ---
Copied To: Stone Sofia MD Attending MD: Stone Sofia MD DATE: 07/08/2018 SUBJECTIVE: The patient is 88 years old, who has been living home with his girlfriend. According to her, his mental status is deteriorating. He is getting more and more dependent. She is sick herself, cannot take care of him. Because of his worsening functional status, he has fallen multiple times. Recent fall was a few days ago. At that point, he sustained some soft tissue injury and has been more immobile. Yesterday, he developed excruciating pain in the left upper mid abdomen going towards the back, so he was brought to ER. CT scan showed edema and swelling of the left iliacus muscle consistent with muscular tear or strain. Still complained of lot of pain, especially with making certain movements. He still is hard to get out of bed or to sit from standing position. Because of his increasing confusion, I am trying to avoid narcotics. He was given Toradol. Still has a lot of pain. PHYSICAL EXAMINATION VITAL SIGNS: He is afebrile, pulse 60, respirations 20, blood pressure 159/59. LUNGS: Bilateral good airflow. No rhonchi or crackle. HEART: S1 and S2 audible. ABDOMEN: Soft. Left flank, left mid back pain Nontender. LABORATORY EXAM: There is no new lab available today. ASSESSMENT: 1. Intractable back pain, intractable because of fall . 2. Dementia. 3. Hypertension. 4. Hyperlipidemia. 5. Chronic atrial fibrillation. PLAN: We will continue the patient on current medication. I will make him admitted for better pain control. He might need subacute rehab for gait training, might be leading to snf care. Stone Sofia MD
--- NOTE | 2018-07-08 13:12 | RAD ---
Date of service: 07/08/2018 PROCEDURE: Radiographs of the Lumbar Spine. HISTORY: fall/pain COMPARISON: No prior. FINDINGS: BONES: Large left-sided osteophytes are seen throughout the spine. No vertebral compression fracture DISC SPACES: Unremarkable. OTHER FINDINGS: None. IMPRESSION: No acute findings
--- NOTE | 2018-07-08 13:14 | RAD ---
Date of service: 07/08/2018 HISTORY: pain COMPARISON: No prior. FINDINGS: BONES: Alignment maintained. No fracture. Multiple right-sided osteophytes are seen throughout the thoracic spine. There are no vertebral compression fractures DISC SPACES: Normal. SOFT TISSUES: Normal. OTHER FINDINGS: None. IMPRESSION: No acute findings
--- NOTE | 2018-07-08 15:15 | CARD ---
APPROVED REPORT Date of service: 07/07/2018 EKG Measurement Heart [id number] <Conclusion> Atrial fibrillation Left axis deviation Left bundle branch block Abnormal ECG
[2018-07-09] MEDS: Multivitamin With Minerals Tab PO SCH (10:07)
[2018-07-09] MEDS: MEMANTINE HCL PO SCH (11:32)
[2018-07-09] MEDS: DONEPEZIL HCL PO SCH (11:32)
[2018-07-09] MEDS: [UNRECOGNIZED DRUG - OTHER] PO SCH (11:32)
--- NOTE | 2018-07-09 12:39 | PN ---
Copied To: Stone Sofia MD Attending MD: Stone Sofia MD DATE: 07/09/2018 SUBJECTIVE: The patient is 88 years old, seen and examined, sitting in chair, confused, disoriented. Does not know where he is and disoriented to time and place. Complained of left flank pain, left upper quadrant pain. Eating and tolerating. Unable to ambulate. Need max assistance. PHYSICAL EXAMINATION: VITAL SIGNS: He is afebrile, pulse 66, respirations 20, blood pressure 150/80. LUNGS: Bilateral fair airflow. No rhonchi or crackle. HEART: S1 and S2 audible. ABDOMEN: Soft. Nontender. No rebound. No guarding except left flank palpable discomfort and left lower quadrant discomfort. NEUROLOGIC: Otherwise, neurologically he is confused and disoriented. LABORATORY EXAM: He had x-ray of the lumbar and thoracic spine done. X-ray of the thoracic and lumbar spine is negative for any fracture. ASSESSMENT: 1. Worsening dementia. 2. Status post multiple falls. 3. Deconditioning and difficulty walking. 4. Left iliacus muscle strain versus tear. 5. Chronic atrial fibrillation. 6. Hypertension. PLAN: We will continue the patient on current medications. Filtration Supervisor to make arrangement for subacute rehab since the patient is high risk to fall and is unsafe discharge. Stone Sofia MD
[2018-07-09] MEDS ORDERED: NAMZARIC PO ONE (12:52)
[2018-07-09] MEDS ORDERED: NAMZARIC PO SCH (12:52)
[2018-07-09] MEDS: NAMZARIC PO SCH (13:59)
[2018-07-09] MEDS: Nystatin 100,000 Units/gm Topical Pow(15 gm) TOP SCH ×2 (14:49→18:10)
[2018-07-10] MEDS: Multivitamin With Minerals Tab PO SCH (10:09)
[2018-07-10] MEDS: Nystatin 100,000 Units/gm Topical Pow(15 gm) TOP SCH ×2 (10:09→17:57)
[2018-07-10] MEDS: NAMZARIC PO SCH (10:52)
--- NOTE | 2018-07-10 23:28 | PN ---
Copied To: Stone Sofia MD Attending MD: Stone Sofia MD DATE: 07/10/2018 SUBJECTIVE: Patient is 88 years old, seen and examined, sitting in chair. Confused and disoriented. Answers simple question only. Girlfriend at the bedside. PHYSICAL EXAMINATION: VITAL SIGNS: He is afebrile, pulse 70, respirations 20, blood pressure 117/81. LUNGS: Bilateral fair airflow. No rhonchi or crackle. HEART: S1 and S2 audible. ABDOMEN: Soft and nontender. No rebound. No guarding. NEUROLOGIC: He is awake and alert, but confused, disoriented. LABORATORY DATA: Urinalysis is unremarkable. ASSESSMENT: 1. Status post fall. 2. Left iliacus muscle bruise. 3. Deconditioning and difficulty walking. 4. Dementia. 5. Chronic atrial fibrillation. 6. Recurrent fall at home. PLAN: We will continue on present management. Golf Ball Cover Treater to make arrangements for subacute rehab to long-term . Stone Sofia MD
[2018-07-11] MEDS: NAMZARIC PO SCH (09:03)
[2018-07-11] MEDS: Nystatin 100,000 Units/gm Topical Pow(15 gm) TOP SCH ×2 (09:08→18:38)
[2018-07-11] MEDS: Multivitamin With Minerals Tab PO SCH (09:08)
--- NOTE | 2018-07-11 22:46 | PN ---
Copied To: Emma Bell MD Attending MD: Emma Bell MD DATE: 07/11/2018 SUBJECTIVE: He is comfortable in chair, in no acute distress. He is confused, disoriented. Denies any pain. No shortness of breath. No chest pain. No events overnight. REVIEW OF SYSTEMS: As per HPI. Rest of 12-point review of systems reviewed negative. PHYSICAL EXAMINATION: GENERAL: Comfortable in bed, in no acute distress. VITAL SIGNS: Temperature 98.7, heart rate is 70 per minute, respiratory rate 20 per minute, blood pressure 110/70. HEENT: Pallor positive. NECK: No lymphadenopathy. CHEST: Air entry present, equal bilaterally. No added sounds. CARDIOVASCULAR: S1, S2 normal. No murmur. No gallop. ABDOMEN: Soft, nontender. No hepatosplenomegaly. EXTREMITIES: No edema. CHANGE MANAGEMENT ADMINISTRATOR: Awake, alert, confused, disoriented. LABORATORY DATA: Reviewed. MEDICATIONS: Reviewed. ASSESSMENT: 1. Status post fall. 2. Left iliacus muscle bruise. 3. Deconditioning. 4. Dementia. 5. Atrial fibrillation. PLAN: Now waiting rehab placement. We will continue aspirin 81 mg daily, Lipitor 10 mg daily, Mobic 15 mg p.o. daily, nystatin powder local application, Xarelto 20 mg p.o. daily, Ultracet every 6 hours p.r.n. Emma Bell MD
[2018-07-12 07:20] VITALS: RESP 16
[2018-07-12] MEDS: Multivitamin With Minerals Tab PO SCH (10:07)
[2018-07-12] MEDS: NAMZARIC PO SCH (10:07)
[2018-07-12] MEDS: Nystatin 100,000 Units/gm Topical Pow(15 gm) TOP SCH (10:07)
[2018-07-12] MEDS ORDERED: Pneumococcal 23-Valent Vaccine IM ONE (12:36)
--- NOTE | 2018-07-12 12:59 | CP.PCM.CON ---
<John Mcintyre - Last Filed: 07/12/18 17:29> History of Present Illness - History of Present Illness History of Present Illness: General Surgery Consult Note for Dr. Sanchez Consulted for: L arm lump 88 year old M with PMHx of prostate cancer (2009), HTN, CAD s/p CABG, chronic afib on xarelto, dementa, status-post multiple falls admitted for intractable abdominal/flank pain. Per patient's girlfriend at bedside, patient has become increasingly unstable at home and has had multiple falls; last fall was on , he had XR done and was sent home. He also had intractable back pain on admission radiating to the left upper and lower quadrant of the abdomen. General surgery was consulted for incidental L arm mass. Denies any pain at the site. No nausea or vomiting, no fevers or chills, no bleeding. PMHx: HTN, chronic A fib, hyperlipidemia, macular degeneration, GERD PSHx: 2007 quadruple bypass surgery, carotid endarterectomy Allergies: NKDA Medications: ASA, lipitor, meloxican, multivitamin, namzaric, nystatin, xarelto , ultracet Social Hx: No tobacco, alcohol, or drug use. Single, lives with girlfriend, Jennifer. Increasing dementia, increasingly dependent on all ADLs PMD: Dr. Sofia Review of Systems - Review of Systems All systems: reviewed and no additional remarkable complaints except (as per HPI above) Past Patient History - Infectious Disease Hx of Infectious Diseases: None - Past Social History Smoking Status: Never Smoked - CARDIAC Hx Cardiac Disorders: Yes (CAD,CABG,2008 QUADRUPLE BYPASS,CT) Hx Hypertension: Yes - PULMONARY Hx Respiratory Disorders: No - NEUROLOGICAL Hx Neurological Disorder: Yes Hx Alzheimer's Disease: Yes Hx Dementia: Yes - HEENT Hx HEENT Problems: Yes Hx Deafness: ([place]) Hx Glaucoma: Yes Hx Macular Degeneration: Yes - RENAL Hx Chronic Kidney Disease: No - ENDOCRINE/METABOLIC Hx Endocrine Disorders: No - HEMATOLOGICAL/ONCOLOGICAL Hx Blood Disorders: No - INTEGUMENTARY Hx Dermatological Problems: Yes Other/Comment: 07-07-18 LEFT UPPER ARM 0.5 SKIN GROWTH.SURROUNDING AREA HAS DEEP RED SKIN DISCOLORATION.BRUISED. - MUSCULOSKELETAL/RHEUMATOLOGICAL Hx Musculoskeletal Disorders: Yes Hx Falls: Yes (MULTIPLE) Hx Unsteady Gait: Yes ([place]) - GASTROINTESTINAL Hx Gastrointestinal Disorders: Yes Hx Gastroesophageal Reflux: Yes - GENITOURINARY/GYNECOLOGICAL Hx Genitourinary Disorders: Yes Hx Incontinence: Yes Hx Prostate Problems: Yes (PROSTATE CA WITH 45 RADIATION.) - PSYCHIATRIC Hx Psychophysiologic Disorder: No Hx Substance Use: No - SURGICAL HISTORY Hx Surgeries: Yes (QUADRUPLE BYPASS 2007) Hx Open Heart Surgery: Yes Other/Comment: Carotid artery sx - ANESTHESIA Hx Anesthesia: Yes Hx Anesthesia Reactions: No Hx Malignant Hyperthermia: No Meds Home Medications: Home Medication List Medication Instructions Recorded Confirmed Type Aspirin [Aspirin Chewable] 81 mg PO DAILY chew 07/12/18 Rx Atorvastatin [Lipitor] 10 mg PO HS tab 07/12/18 Rx Meloxicam [Mobic] 15 mg PO DAILY tab 07/12/18 Rx Rivaroxaban [Xarelto] 20 mg PO DAILY tab 07/12/18 Rx Allergies/Adverse Reactions: Allergies Allergy/AdvReac Type Severity Reaction Status Date / Time No Known Allergies Allergy Verified 07/07/18 14:42 - Medications Medications: Current Medications Aspirin (Aspirin Chewable) 81 mg PO DAILY [facility] Last Admin: 07/12/18 10:06 Dose: 81 mg Atorvastatin Calcium (Lipitor) 10 mg PO HS [facility] Last Admin: 07/11/18 21:42 Dose: 10 mg Meloxicam (Mobic) 15 mg PO DAILY [facility] Last Admin: 07/12/18 10:07 Dose: 15 mg Multivitamins/Minerals (Therapeutic-M Tab) 1 tab PO DAILY [facility] Last Admin: 07/12/18 10:07 Dose: 1 tab Namzaric 28 - 10mg ( (Home Med)) 1 cap PO DAILY [facility] Last Admin: 07/12/18 10:07 Dose: 1 cap Nystatin (Nystop Topical Powder) 0 gm TOP BID [facility] Last Admin: 07/12/18 10:07 Dose: 10,000 unit Rivaroxaban (Xarelto) 20 mg PO DAILY [facility] Last Admin: 07/12/18 10:07 Dose: 20 mg Tramadol/Acetaminophen (Ultracet 37.5/325 Mg) 1 tab PO Q6H PRN PRN Reason: Pain, moderate (4-7) Physical Exam - Constitutional Appears: Non-toxic, No Acute Distress, Confused - Head Exam Head Exam: ATRAUMATIC, NORMAL INSPECTION, NORMOCEPHALIC - Eye Exam Eye Exam: Normal appearance - ENT Exam ENT Exam: Normal Exam - Neck Exam Neck exam: Positive for: Normal Inspection - Respiratory Exam Respiratory Exam: NORMAL BREATHING PATTERN - Cardiovascular Exam Cardiovascular Exam: RRR, +S1, +S2 - GI/Abdominal Exam GI & Abdominal Exam: Normal Bowel Sounds, Soft. absent: Distended, Firm, Guarding, Rebound, Rigid - Extremities Exam Additional comments: Antecubital mass on LUE, likely cyst formation, ~1.5-2cm, non-erythematous, mobile, fluctuant, no TTP - Neurological Exam Neurological exam: Alert Additional comments: Alert, awake, confused - Psychiatric Exam Psychiatric exam: Normal Affect, Normal Mood - Skin Skin Exam: Dry, Intact, Warm Results - Vital Signs Recent Vital Signs: Last Vital Signs Temp 97.6 F 07/12/18 06:00 Pulse 73 07/12/18 06:00 Resp 16 07/12/18 06:00 BP 138/76 07/12/18 06:00 Pulse Ox 97 07/12/18 06:00 - Labs Result Diagrams: 07/07/18 12:00 07/07/18 12:00 Assessment & Plan - Assessment and Plan (Free Text) Assessment: 88 year old M, PMHx prostate cancer (2009), HTN, HLD, CAD s/p CABG, chronic a fib, dementia s/p multiple mechanical falls admitted for intractable abdominal/ flank pain with incidental L arm mass finding, likely cyst formation. Plan: -No acute surgical intervention required -can f/u outpatient for cyst removal, with anticoagulants held at that time to decrease likelihood of bleeding Pt seen and examined by Dr. Sanchez, who agrees with management as per above John Mcintyre, PGY-1 <Marcell Sanchez - Last Filed: 07/12/18 21:16> Results - Vital Signs Recent Vital Signs: Last Vital Signs Temp 97.9 F 07/12/18 14:00 Pulse 62 07/12/18 14:00 Resp 16 07/12/18 14:00 BP 146/64 07/12/18 14:00 Pulse Ox 98 07/12/18 14:00 - Labs Result Diagrams: 07/07/18 12:00 07/07/18 12:00 Assessment & Plan - Assessment and Plan (Free Text) Assessment: This consult done under my direct supervision Ed Sanchez MD FACS
[2018-07-12 14:11] VITALS: BP 146/64; PULSE 62; TEMP 97.9; O2SAT 98
--- NOTE | 2018-07-13 10:27 | DS ---
Copied To: Stone Sofia MD Attending MD: Stone Sofia MD The patient is an 88-year-old, seen and examined, doing well. Awake and alert, confused, disoriented. Girlfriend at the bedside. PHYSICAL EXAMINATION: GENERAL: He is awake, alert, oriented, communicative. VITAL SIGNS: He is afebrile, pulse 73, respirations 16, blood pressure 138/76. LUNGS: Bilateral good airflow. No rhonchi or crackle. HEART: S1, S2 audible. ABDOMEN: Soft, nontender. No rebound. No guarding. NEUROLOGICAL: Patient is awake, alert, oriented, communicative. ASSESSMENT: 1. Dementia. 2. Deconditioning, difficulty walking. 3. Chronic atrial fibrillation. 4. Hypertension. 5. Hypothyroidism. 6. Hyperlipidemia. PLAN: Patient will be discharged today for subacute rehab, going to permanent placement. Stnoe Sofia MD
== END 2018-07-12 14:42 | DRG 57 ==
LOC: ED 11:30 → ERH 13:53 → 5RSO 16:20 → OBSVTOIN 07-08 11:58 → 5RNO 07-09 17:18
PROVIDERS: ADMIT Internal Medicine; ATTEND Internal Medicine
DX: G30.9 Alzheimer's disease, unspecified (principal); F02.80 Dementia in other diseases classified elsewhere, unspecified severity, without behavioral disturbance, psychotic disturbance, mood disturbance, and anxiety; S76.812A Strain of other specified muscles, fascia and tendons at thigh level, left thigh, initial encounter; D64.9 Anemia, unspecified; E03.9 Hypothyroidism, unspecified; E78.5 Hyperlipidemia, unspecified; H35.30 Unspecified macular degeneration; H40.9 Unspecified glaucoma; H91.90 Unspecified hearing loss, unspecified ear; I10 Essential (primary) hypertension; I25.10 Atherosclerotic heart disease of native coronary artery without angina pectoris; I25.2 Old myocardial infarction; I48.2 Chronic atrial fibrillation; K21.9 Gastro-esophageal reflux disease without esophagitis; R29.6 Repeated falls; R32 Unspecified urinary incontinence; M54.9 Dorsalgia, unspecified; R26.2 Difficulty in walking, not elsewhere classified; Z79.01 Long term (current) use of anticoagulants; Z79.1 Long term (current) use of non-steroidal anti-inflammatories (NSAID); Z79.82 Long term (current) use of aspirin; Z79.899 Other long term (current) drug therapy; Z85.46 Personal history of malignant neoplasm of prostate; Z95.1 Presence of aortocoronary bypass graft